=== PATIENT | female | born 1995 | race American Indian/Alaskan Native ===

== ENCOUNTER 2017-07-08 16:34 | Emergency (ER) | payer MEDICAID ==
[2017-07-08 16:34] VITALS: BMI 18.3
--- NOTE | 2017-07-08 16:50 | ED PDOC ---
Arrival/HPI - General Time Seen by Provider: 07/08/17 16:42 Historian: Patient - History of Present Illness Narrative History of Present Illness (Text): 07/08/17 16:40 A 21 year old female, with no significant past medical history, presents to the emergency department complaining of clear rhinorrhea, sore throat, and fever for 2 days. Patient reports taking Motrin this morning. Denies nausea, vomiting , diarrhea, productive cough, constipation, dysuria, or any other complaints. No PMD Time/Duration: < week (2 days) Symptom Onset: Sudden Symptom Course: Unchanged Past Medical History - Provider Review Nursing Documentation Reviewed: Yes - Tetanus Immunization Tetanus Immunization: Unknown - Psychiatric Hx Substance Use: No Family/Social History - Physician Review Nursing Documentation Reviewed: Yes Family/Social History: No Known Family HX Smoking Status: Unknown If Ever Smoked Hx Alcohol Use: Yes Hx Substance Use: No Allergies/Home Meds Allergies/Adverse Reactions: Allergies apple Allergy (Verified 03/16/16 23:46) ANAPHYLAXIS nugent Allergy (Verified 03/16/16 23:46) ANAPHYLAXIS peach Allergy (Verified 07/08/17 16:44) ANAPHYLAXIS Review of Systems - Physician Review All systems were reviewed & negative as marked: Yes - Review of Systems Constitutional: Fevers ENT: Sore Throat, Rhinorrhea (clear) Respiratory: absent: Cough Gastrointestinal: absent: Constipation, Diarrhea, Nausea, Vomiting Genitourinary Female: absent: Dysuria Physical Exam Vital Signs Reviewed: Yes Vital Signs Temp Pulse Resp BP Pulse Ox 07/08/17 17:34 99.4 F 103 H 18 104/63 99 07/08/17 16:45 102.9 F H 107 H 20 117/82 100 07/08/17 16:44 102.9 F H 107 H 20 117/82 100 Temperature: Febrile Blood Pressure: Normal Pulse: Regular Respiratory Rate: Normal Appearance: Positive for: Well-Appearing, Non-Toxic, Comfortable Pain Distress: None Mental Status: Positive for: Alert and Oriented X 3 - Systems Exam Head: Present: Atraumatic, Normocephalic Pupils: Present: PERRL Extroacular Muscles: Present: EOMI Conjunctiva: Present: Normal Mouth: Present: Moist Mucous Membranes Pharnyx: Present: ERYTHEMA. No: EXUDATE Neck: Present: Normal Range of Motion Respiratory/Chest: Present: Clear to Auscultation, Good Air Exchange. No: Respiratory Distress, Accessory Muscle Use Cardiovascular: Present: Normal S1, S2, Tachycardic. No: Murmurs Abdomen: Present: Normal Bowel Sounds. No: Tenderness, Distention, Peritoneal Signs Back: Present: Normal Inspection Upper Extremity: Present: Normal Inspection. No: Cyanosis, Edema Lower Extremity: Present: Normal Inspection. No: Edema Neurological: Present: GCS=15, CN II-XII Intact, Speech Normal Skin: Present: Warm, Dry, Normal Color. No: Rashes Psychiatric: Present: Alert, Oriented x 3, Normal Insight, Normal Concentration Medical Decision Making ED Course and Treatment: 07/08/17 16:43 Impression: 21 year old female with clear rhinorrhea, sore throat, and fever. Differential Diagnosis included but are not limited to: Strep Throat vs. Flu Plan: -- Serology -- Motrin -- Reassess and disposition Prior Visits: Notes and results from previous visits were reviewed. Patient was last seen in the emergency department on 03/17/2016 for sore throat and nasal congestion. Patient was d/c home. Progress Notes: 07/08/17 17:31 Flu positive. Well appearing and tolerating po. Playing on cell phone and in NAD. Lungs cta b/l. Not . Spoke to patient and mother about risks and benefits of tamiflu and gave prescription. Instructed to return with any worsening symptoms. 07/08/17 17:37 - Lab Interpretations Lab Results: Lab Results 07/08/17 17:00: Influenza Typ A,B (EIA) Pos for influenza a H, Grp A Beta Strep Ag Negative - Medication Orders Current Medication Orders: Discontinued Medications Ibuprofen (Motrin Tab) 400 mg PO STAT STA Stop: 07/08/17 16:44 Last Admin: 07/08/17 17:04 Dose: 400 mg MAR Pain/Vitals Document 07/08/17 17:04 EQ (Rec: 07/08/17 17:04 EQ [facility] [place] [facility] [id number] Pain Reassessment Is This A Pain ReAssessment? No Sleep Is patient sleeping during reassessment? No Pain Scale Used Pain Scale Used Numeric - Scribe Statement The provider has reviewed the documentation as recorded by the Deborahibjared Maher Provider Scribe Attestation: All medical record entries made by the Deborahibjared were at my direction and personally dictated by me. I have reviewed the chart and agree that the record accurately reflects my personal performance of the history, physical exam, medical decision making, and the department course for this patient. I have also personally directed, reviewed, and agree with the discharge instructions and disposition. Disposition/Present on Arrival - Present on Arrival Any Indicators Present on Arrival: No History of DVT/PE: No History of Uncontrolled Diabetes: No Urinary Catheter: No History Surgical Site Infection Following: None - Disposition Have Diagnosis and Disposition been Completed?: Yes Diagnosis: Influenza A Disposition: HOME/ ROUTINE Disposition Time: 17:25 Patient Plan: Discharge Patient Problems: Current Active Problems Problem Status Onset Influenza A Acute Condition: GOOD Discharge Instructions (ExitCare): Oseltamivir (By mouth), Influenza (ED) Additional Instructions: Follow up with PMD within 2 days. Return to ED if condition worsens. Copious fluids. Motrin or tylenol for fever Prescriptions: Oseltamivir Phosphate [Tamiflu] 75 mg PO BID #10 capsule Referrals: PCP,NO [Primary Care Provider] - Follow up with primary Forms: WORK NOTE
[2017-07-08 17:25] LABS: INFLUENZA A B POS FOR INFLUENZA A (NEGATIVE)
[2017-07-08 17:35] VITALS: BP 104/63; PULSE 103; RESP 18; TEMP 99.4; O2SAT 99
== END 2017-07-08 17:43 | disposition home or self-care (01) ==
LOC: ED 16:34
DX: J10.1 Influenza due to other identified influenza virus with other respiratory manifestations (principal)

== ENCOUNTER 2017-09-08 21:14 | Emergency (ER) | payer MEDICAID ==
[2017-09-08 21:15] VITALS: BMI 18.3
[2017-09-08 21:30] VITALS: RESP 18; TEMP 98.1; O2SAT 100
--- NOTE | 2017-09-08 21:51 | ED PDOC ---
Arrival/HPI <John Meredith - Last Filed: 09/08/17 22:54> - General Historian: Patient - History of Present Illness Symptom Onset: Gradual Symptom Course: Unchanged Quality: Aching Severity Level: 5 <Kaley Abraham - Last Filed: 09/08/17 23:33> - General Chief Complaint: Flu-like Symptoms Time Seen by Provider: 09/08/17 21:19 - History of Present Illness Narrative History of Present Illness (Text): 09/08/17 21:51 22yr old female presents today with a 2 day history of sore throat, nasal congestion and cough. pt states she had fever of 103 at home. pt c/o bodyaches. pt denies dizziness or weakness. no abdominal pain. no urinary symptoms. no other complaints. pt states she had the flu 2 months ago with similar symptoms. (Kaley Abraham) Past Medical History - Provider Review Nursing Documentation Reviewed: Yes - Travel History Have you recently traveled outside [place] w/in the past 3 mons?: No - Tetanus Immunization Tetanus Immunization: Unknown - Cardiac Hx Cardiac Disorders: No - Pulmonary Hx Respiratory Disorders: No - Neurological Hx Neurological Disorder: No - HEENT Hx HEENT Disorder: No - Renal Hx Renal Disorder: No - Endocrine/Metabolic Hx Endocrine Disorders: No - Hematological/Oncological Hx Blood Disorders: No - Integumentary Hx Dermatological Disorder: No - Musculoskeletal/Rheumatological Hx Musculoskeletal Disorders: No - Gastrointestinal Hx Gastrointestinal Disorders: No - Genitourinary/Gynecological Hx Genitourinary Disorders: No - Psychiatric Hx Psychophysiologic Disorder: No Hx Substance Use: No <Kaley Abraham - Last Filed: 09/08/17 23:33> Family/Social History - Physician Review Nursing Documentation Reviewed: Yes Family/Social History: Unknown Family HX Smoking Status: Unknown If Ever Smoked Hx Alcohol Use: Yes Hx Substance Use: No <Kaley Abraham - Last Filed: 09/08/17 23:33> Allergies/Home Meds <John Meredith - Last Filed: 09/08/17 22:54> <Kaley Abraham - Last Filed: 09/08/17 23:33> Allergies/Adverse Reactions: Allergies apple Allergy (Verified 03/16/16 23:46) ANAPHYLAXIS nugent Allergy (Verified 03/16/16 23:46) ANAPHYLAXIS peach Allergy (Verified 07/08/17 16:44) ANAPHYLAXIS Review of Systems - Review of Systems Constitutional: Fevers, Other (bodyaches). absent: Fatigue ENT: Sore Throat, Sinus Congestion Respiratory: Cough. absent: SOB Cardiovascular: absent: Chest Pain, Palpitations Gastrointestinal: absent: Abdominal Pain, Constipation, Diarrhea, Nausea, Vomiting Genitourinary Female: absent: Dysuria Musculoskeletal: absent: Arthralgias, Back Pain, Neck Pain Skin: absent: Rash, Pruritis Neurological: absent: Headache, Dizziness Psychiatric: absent: Anxiety, Depression <Kaley Abraham T - Last Filed: 09/08/17 23:33> Physical Exam Vital Signs Reviewed: Yes Temperature: Afebrile Blood Pressure: Normal Pulse: Regular Respiratory Rate: Normal Appearance: Positive for: Well-Appearing, Non-Toxic, Comfortable Pain Distress: None Mental Status: Positive for: Alert and Oriented X 3 - Systems Exam Head: Present: Atraumatic Pupils: Present: PERRL Extroacular Muscles: Present: EOMI Conjunctiva: Present: Normal Ears: Present: Normal, NORMAL TM Mouth: Present: Moist Mucous Membranes, Normal Lips, Normal Tounge, Normal Teeth. No: Drooling, Trismus Pharnyx: Present: Normal. No: ERYTHEMA, EXUDATE, TONSILS ENLARGED, Peritonsilar Swelling, Uvular Deviation, Muffled/Hoarse Voice Nose (External): Present: Atraumatic Nose (Internal): Present: Normal Inspection, Clear Mucous Neck: Present: Normal Range of Motion, Trachea Midline. No: Lymphadenopathy Respiratory/Chest: Present: Clear to Auscultation, Good Air Exchange. No: Respiratory Distress, Accessory Muscle Use, Wheezes, Rhonchi, Tachypneic Cardiovascular: Present: Regular Rate and Rhythm, Normal S1, S2. No: Murmurs Abdomen: No: Tenderness, Rebound, Guarding Upper Extremity: Present: Normal ROM Lower Extremity: Present: Normal ROM Neurological: Present: GCS=15, Speech Normal Skin: Present: Warm, Dry, Normal Color. No: Rashes Psychiatric: Present: Alert, Oriented x 3 <Kaley Abraham T - Last Filed: 09/08/17 23:33> Vital Signs Temp Pulse Resp BP Pulse Ox 09/08/17 21:24 98.1 F 87 18 125/85 100 Medical Decision Making <John Meredith - Last Filed: 09/08/17 22:54> <Kaley Abraham - Last Filed: 09/08/17 23:33> ED Course and Treatment: 09/08/17 21:54 Patient is nontoxic well-appearing. C/o flu-like symptoms. motrin PO cxr; no infiltrate or effusion rapid flu; negative rapid strep: negative Tamiflu po zithromax po Patient reassessment: Pt feeling better; vitals stable. discussed all results with patient. I advised follow up with primary care physician within the next 2 days. I advised increase fluids and return if symptoms worsen persist or if new symptoms develop Patient verbalizes understanding of discharge instructions and need for immediate followup. all aspects of this case were discussed the attending of record. IMPRESSION; Influenza, cough Motrin one tablet every 6 hours as needed for pain zithromax daily x 4 days Tamiflu: 1 capsule twice daily 5 days Increase fluids Followup with primary care physician the next 2 days Return if symptoms worsen persist or if new symptoms develop: Continued high fevers, dizziness, weakness, chest pain or shortness of breath vomiting/diarrhea , or if any other concerning symptoms develop 09/08/17 23:20 (Kaley Abraham) - Lab Interpretations Lab Results: Lab Results 09/08/17 21:57: Influenza Typ A,B (EIA) Negative for flu a/b, Grp A Beta Strep Ag Negative - RAD Interpretation Radiology Orders: 09/08/17 21:46 CHEST TWO VIEWS (PA/LAT) [RAD] Stat - Medication Orders Current Medication Orders: Discontinued Medications Ibuprofen (Motrin Tab) 400 mg PO STAT STA Stop: 09/08/17 21:47 Last Admin: 09/08/17 21:52 Dose: 400 mg - PA / GEOINT ANALYST / Resident Statement /DO has reviewed & agrees with the documentation as recorded. <John Meredith - Last Filed: 09/08/17 22:54> Disposition/Present on Arrival <John Meredith - Last Filed: 09/08/17 22:54> - Present on Arrival Any Indicators Present on Arrival: No History of DVT/PE: No History of Uncontrolled Diabetes: No Urinary Catheter: No History of Decub. Ulcer: No History Surgical Site Infection Following: None - Disposition Have Diagnosis and Disposition been Completed?: Yes Disposition Time: 23:31 Patient Plan: Discharge <Kaley Abraham - Last Filed: 09/08/17 23:33> - Disposition Diagnosis: Cough, Influenza Disposition: HOME/ ROUTINE Condition: GOOD Discharge Instructions (ExitCare): Cough in Adults, Flu, Adult (DC) Additional Instructions: Motrin one tablet every 6 hours as needed for pain zithromax daily x 4 days Tamiflu: 1 capsule twice daily 5 days Increase fluids Followup with primary care physician the next 2 days Return if symptoms worsen persist or if new symptoms develop: Continued high fevers, dizziness, weakness, chest pain or shortness of breath vomiting/diarrhea , or if any other concerning symptoms develop Prescriptions: Azithromycin [Zithromax] 250 mg PO DAILY #4 tab Ibuprofen [Motrin Tab] 400 mg PO Q6H PRN #20 tab PRN Reason: Pain, Mild (1-3) Oseltamivir [Tamiflu] 75 mg PO BID #10 cap Referrals: [facility] [place] [Outside] - Follow up with primary Krystal Saez MD [Staff Provider] - Follow up with primary Forms: [employer] (Bar[place]adian), WORK NOTE
[2017-09-08 22:24] LABS: INFLUENZA A B NEGATIVE FOR FLU A/B (NEGATIVE)
[2017-09-08 23:51] VITALS: BP 123/89; PULSE 89
--- NOTE | 2017-09-09 08:12 | RAD ---
HISTORY: cough/fever COMPARISON: No prior. TECHNIQUE: Chest PA and lateral FINDINGS: LUNGS: No active pulmonary disease. PLEURA: No significant pleural effusion identified. No pneumothorax apparent. CARDIOVASCULAR: Normal. OSSEOUS STRUCTURES: Moderate scoliosis of the thoracic spine convex to the right VISUALIZED UPPER ABDOMEN: Normal. OTHER FINDINGS: None. IMPRESSION: No active disease.
== END 2017-09-08 23:36 | disposition home or self-care (01) ==
LOC: ED 21:14
DX: J11.1 Influenza due to unidentified influenza virus with other respiratory manifestations (principal); R05 Cough

== ENCOUNTER 2018-02-12 20:26 | Emergency (ER) | payer MEDICAID ==
[2018-02-12 20:27] VITALS: BMI 18.3
[2018-02-12] MEDS ORDERED: Albuterol-Ipratrop 3 mg / 0.5 (3 ml) UD IH STA (20:48)
--- NOTE | 2018-02-12 20:52 | ED PDOC ---
Arrival/HPI <John Meredith - Last Filed: 02/12/18 22:01> - General Historian: Patient - History of Present Illness Time/Duration: Other (3 days) Symptom Onset: Gradual Symptom Course: Unchanged Quality: Aching <Kaley Abraham - Last Filed: 02/12/18 22:48> - General Chief Complaint: Cough, Cold, Congestion Time Seen by Provider: 02/12/18 20:37 - History of Present Illness Narrative History of Present Illness (Text): 02/12/18 20:48 22yr old female presents today with a 3 day history of sore throat, nasal congestion, dry cough with wheezing. pt states she has hx of asthma and has been using her pump frequently. she denies shortness of breath, but states cough is dry and tight. pt c/o low grade fevers at home. she denies abdominal pain. no n/v/d/c. no sick contacts. no dizziness or weakness. no other complaints. (Kaley Abraham) Past Medical History - Provider Review Nursing Documentation Reviewed: Yes - Travel History Have you recently traveled outside [place] w/in the past 3 mons?: No - Tetanus Immunization Tetanus Immunization: Unknown - Cardiac Hx Cardiac Disorders: No - Pulmonary Hx Respiratory Disorders: Yes Hx Respiratory Tract Infection: Yes - Neurological Hx Neurological Disorder: No - HEENT Hx HEENT Disorder: No - Renal Hx Renal Disorder: No - Endocrine/Metabolic Hx Endocrine Disorders: No - Hematological/Oncological Hx Blood Disorders: No - Integumentary Hx Dermatological Disorder: No - Musculoskeletal/Rheumatological Hx Musculoskeletal Disorders: No - Gastrointestinal Hx Gastrointestinal Disorders: No - Genitourinary/Gynecological Hx Genitourinary Disorders: No - Psychiatric Hx Psychophysiologic Disorder: No Hx Substance Use: Yes (MARIJUANA) <Kaley Abraham - Last Filed: 02/12/18 22:48> Family/Social History - Physician Review Nursing Documentation Reviewed: Yes Family/Social History: Unknown Family HX Smoking Status: Current Some Days Smoker Hx Alcohol Use: Yes Frequency of alcohol use: Socially Hx Substance Use: Yes (MARIJUANA) <Kaley Abraham - Last Filed: 02/12/18 22:48> Allergies/Home Meds <John Meredith - Last Filed: 02/12/18 22:01> <Kaley Abraham - Last Filed: 02/12/18 22:48> Allergies/Adverse Reactions: Allergies apple Allergy (Verified 02/12/18 20:28) ANAPHYLAXIS nugent Allergy (Verified 02/12/18 20:28) ANAPHYLAXIS peach Allergy (Verified 02/12/18 20:28) ANAPHYLAXIS Home Medications: Home Meds Medication Instructions Recorded Confirmed Albuterol Sulfate [Ventolin Hfa] 2 puff NEB Q6 PRN 02/12/18 02/12/18 Review of Systems - Review of Systems Constitutional: Fevers. absent: Fatigue ENT: Sore Throat, Sinus Congestion Respiratory: Cough, Wheezing Cardiovascular: absent: Chest Pain, Palpitations Gastrointestinal: absent: Abdominal Pain, Nausea, Vomiting Genitourinary Female: absent: Dysuria Musculoskeletal: absent: Arthralgias, Back Pain, Neck Pain Skin: absent: Rash, Pruritis Neurological: absent: Headache, Dizziness Psychiatric: absent: Anxiety, Depression, Suicidal Ideation <Kaley Abraham T - Last Filed: 02/12/18 22:48> Physical Exam Vital Signs Reviewed: Yes Temperature: Afebrile Blood Pressure: Normal Pulse: Tachycardic Respiratory Rate: Normal Appearance: Positive for: Well-Appearing, Non-Toxic, Comfortable Pain Distress: None Mental Status: Positive for: Alert and Oriented X 3 - Systems Exam Head: Present: Atraumatic Pupils: Present: PERRL Extroacular Muscles: Present: EOMI Conjunctiva: Present: Normal Ears: Present: Normal, NORMAL TM Mouth: Present: Moist Mucous Membranes, Normal Lips, Normal Tounge, Normal Teeth. No: Drooling, Trismus Pharnyx: Present: ERYTHEMA. No: EXUDATE, TONSILS ENLARGED, Peritonsilar Swelling, Uvular Deviation, Muffled/Hoarse Voice Nose (External): Present: Atraumatic Nose (Internal): Present: Normal Inspection, Clear Mucous. No: Septal Hematoma Neck: Present: Normal Range of Motion, Trachea Midline. No: Lymphadenopathy Respiratory/Chest: Present: Good Air Exchange, Wheezes, Rhonchi. No: Clear to Auscultation, Respiratory Distress, Accessory Muscle Use, Tachypneic Cardiovascular: Present: Tachycardic. No: Murmurs Abdomen: No: Tenderness Neurological: Present: GCS=15, Speech Normal Skin: Present: Warm, Dry, Normal Color. No: Rashes Psychiatric: Present: Alert, Oriented x 3 <Kaley Abraham - Last Filed: 02/12/18 22:48> Vital Signs Temp Pulse Resp BP Pulse Ox 02/12/18 20:29 99.2 F 113 H 17 115/77 99 Medical Decision Making <John Meredith - Last Filed: 02/12/18 22:01> Reassessment Condition: Re-examined, Improved <Kaley Abraham - Last Filed: 02/12/18 22:48> ED Course and Treatment: 02/12/18 20:52 Patient is nontoxic well-appearing in no distress. Vital signs are stable. tylenol duoneb prednisone cxr; + scoliosis, no infiltrate no effusion pt reassessment; pt feeling better; slight wheezing still noted. albuterol added. zithromax started PO pt reassessment; pt feeling "much better" lungs cta bilaterally. I advised follow up with primary care physician within the next 2 days. I advised increase fluids and return if symptoms worsen persist or if new symptoms develop. advised patient of severe scoliosis; pt was advised that she must f/u with spinal specialist and may need surgery. pt states she knew she needed surgery, she states she had a brace but lost it a long time ago. pt states she never f/u with her specialist. advised patient to take medications as prescribed. Patient verbalizes understanding of discharge instructions and need for immediate followup. all aspects of this case were discussed the attending of record. IMPRESSION; cough, asthma exacerbation tylenol one tablet every 4 hours as needed for pain/fever reduction Zithromax one tablet once daily x4 days FLonase; 2 sprays each nostril once daily. prednisone; daily x 4 days. albuterol nebulizer 3 times daily as needed for cough. Increase fluids Followup with primary care physician the next 2 days Return if symptoms worsen persist or if new symptoms develop; high fevers, worsening shortness of breath, dizziness, chest pain or if any concerning symptoms develop. (Kaley Abraham) - RAD Interpretation Radiology Orders: 02/12/18 20:48 CHEST TWO VIEWS (PA/LAT) [RAD] Stat - Medication Orders Current Medication Orders: Discontinued Medications Acetaminophen (Tylenol 325mg Tab) 975 mg PO STAT STA Stop: 02/12/18 20:38 Last Admin: 02/12/18 20:59 Dose: 975 mg Albuterol Sulfate (Albuterol 0.083% Inhal Gemma (2.5 Mg/3 Ml) Ud) 2.5 mg IH STAT STA Stop: 02/12/18 22:07 Last Admin: 02/12/18 22:12 Dose: 2.5 mg Albuterol/Ipratropium (Duoneb 3 Mg/0.5 Mg (3 Ml) Ud) 3 ml IH STAT STA Stop: 02/12/18 20:49 Last Admin: 02/12/18 21:02 Dose: 3 ml Azithromycin (Zithromax) 500 mg PO STAT STA PRN Reason: Protocol Stop: 02/12/18 22:18 Last Admin: 02/12/18 22:37 Dose: 500 mg Prednisone (Prednisone Tab) 40 mg PO STAT ONE Stop: 02/12/18 20:53 Last Admin: 02/12/18 21:03 Dose: 40 mg - PA / SALESPERSON SEWING MACHINES / Resident Statement /DO has reviewed & agrees with the documentation as recorded. <John Meredith - Last Filed: 02/12/18 22:01> Disposition/Present on Arrival <John Meredith - Last Filed: 02/12/18 22:01> - Present on Arrival Any Indicators Present on Arrival: No History of DVT/PE: No History of Uncontrolled Diabetes: No Urinary Catheter: No History of Decub. Ulcer: No History Surgical Site Infection Following: None - Disposition Have Diagnosis and Disposition been Completed?: Yes Disposition Time: 22:44 Patient Plan: Discharge <Kaley Abraham - Last Filed: 02/12/18 22:48> - Disposition Diagnosis: Cough, Asthma exacerbation, Scoliosis Disposition: HOME/ ROUTINE Condition: GOOD Discharge Instructions (ExitCare): Asthma in Adults, Cough, Adult (DC) Additional Instructions: tylenol one tablet every 4 hours as needed for pain/fever reduction Zithromax one tablet once daily x4 days FLonase; 2 sprays each nostril once daily. prednisone; daily x 4 days. albuterol nebulizer 3 times daily as needed for cough. Increase fluids follow up with a back specialist for your scoliosis Followup with primary care physician the next 2 days Return if symptoms worsen persist or if new symptoms develop; high fevers, worsening shortness of breath, dizziness, chest pain or if any concerning symptoms develop. Prescriptions: Albuterol HFA [Ventolin HFA 90 mcg/actuation (8 g)] 2 puff IH [id number] PRN #1 inhaler PRN Reason: Cough Albuterol 0.083% [Albuterol 0.083% Inhal Gemma (2.5 mg/3 ml) UD] 1 vial IH TID PRN #1 packet PRN Reason: Cough Azithromycin [Zithromax] 250 mg PO DAILY #4 tab Fluticasone Nasal [Flonase] 2 spr NS DAILY #1 spr Nebulizer [Compact Compressor Nebulizer] 1 dev XX PRN PRN #1 dev PRN Reason: Cough predniSONE [predniSONE Tab] 2 tab PO DAILY #8 tab Referrals: Shelia Stauffer MD [Medical Doctor] - Follow up with primary Mahendra Grimes MD [Staff Provider] - Follow up with primary [facility] [Outside] - Follow up with primary [facility] [Outside] - Follow up with primary Forms: [employer] (Portuguese), WORK NOTE
[2018-02-12] MEDS ORDERED: Albuterol 0.083% Inhal Sol (2.5 mg/3 mL) UD IH STA (22:06)
[2018-02-12 22:50] VITALS: BP 100/67; PULSE 94; RESP 18; TEMP 99.3; O2SAT 100
--- NOTE | 2018-02-13 10:35 | RAD ---
HISTORY: COMPARISON: 09/08/2017 TECHNIQUE: Chest PA and lateral FINDINGS: LINES AND TUBES: None. LUNG AND PLEURA: The lungs are well inflated and clear. No pleural effusion or pneumothorax. HEART AND MEDIASTINUM: The heart is not enlarged. The hilar and mediastinal contours are within normal limits. SKELETAL STRUCTURES: There is S-shaped scoliosis in the thoracolumbar spine. VISUALIZED UPPER ABDOMEN: Normal. OTHER FINDINGS: None. IMPRESSION: No active pulmonary disease.
== END 2018-02-12 22:59 | disposition home or self-care (01) ==
LOC: ED 20:26
DX: J45.901 Unspecified asthma with (acute) exacerbation (principal); M41.9 Scoliosis, unspecified; R05 Cough